=== PATIENT | male | born 1985 | race Caucasian/White ===

== ENCOUNTER 2021-01-24 07:25 | Day surgery (SDC) | payer BC ==
[~2021-01-24] VITALS: Ht 172.7 cm; Wt 98.0 kg
[~2021-01-24 07:25] MED LIST: BUPRENORPHINE HC8 MG SL; HYDROCHLOROTHIA25 MG PO
--- NOTE | 2021-01-24 09:47 | NUR ---
01/24/21 0947 Evy Duran 0928: PT ARRIVES TO PACU FOR RECOVERY. 82 SAT 85% ON ARRIVAL AND PT NON RESPONSIVE TO VERBAL OR PAINFUL STIMULI. JAW THRUST PERFORMED AND PT PLACED ON 12L O2 VIA FACEMASK. 02 SATS INCREASED TO 98%. 0933: CLAM DREDGER AT THE BEDSIDE. OPA PLACEMENT ATTEMPTED. PT CLAMPS DOWN AND UNABLE TO ADVANCE. HOB ELEVATED AND PT MAINTAINS AIRWAY WITHOUT ASSISTANCE AT THIS TIME. REMAINS UN RESPONSIVE TO VERBAL AND PAINFUL STIMULI. VSS, O2 SATS >99% ON 12L O2 VIA MASK 0934: O2 TURNED DOWN TO 10L VIA FACEMASK. O2 SATS MAINTAINED >97%. AIRWAY OCCLUDES INTERMITTENTLY. REACTIVE TO AND RESOLVED WITH TACTILE STIMULATION 0944: PT COUGHS EFFECTIVELY. REMAINS REACTIVE TO TACTILE STIMULATION ONLY. O2 SAT CONTS TO REMAINS STABLE ON 10L O2 VIA FACEMASK 0946: PT OPENS EYES ON COMMAND, REMAINS DROWSY. VSS, RESP EVEN AND UNLABORED. OXYGEN TURNED DOWN TO 8L. SATS STABLE >98%. DRESSING C/D/I.
[2021-01-24] MEDS ORDERED: OXYCODON-ACETA1 EAC2 PO (09:55)
[2021-01-24] MEDS ORDERED: ACETAMINOPHEN500 MG PO (09:55)
[2021-01-24] MEDS ORDERED: IBUPROFEN600 MG PO (09:55)
--- NOTE | 2021-01-24 11:25 | NUR ---
PATIENT TOLERATING PO FLUIDS AND CRACKERS WITH NO NAUSEA AT THIS TIME. PATIENT STATES PAIN TO LEFT GROIN WNL. AT BEDSIDE. CALL LIGHT WITHIN REACH. DRESSING TO LEFT GROIN AREA INTACT WITH SCANT SEROSANGUINOUS DRAINAGE NOTED.
--- NOTE | 2021-01-24 12:43 | NUR ---
1238: PT USES CALL LIGHT TO NOTIFY DS STAFF. PT STATES HE WAS ABLE TO VOID AND POINTS TO URINAL WITH APPROXIMATELY 200 MLS DARK YELLOW URINE. PT TOLERATES LUNCH WITH NO COMPLAINTS OF NAUSEA. PT ASKS THIS RN IF "IT'S NORMAL FOR DRESSING TO HAVE BLOOD ON IT" THIS RN ASSESS AND NOTES SMALL AMOUNT OF RED DRAINAGE TO LATERAL ASPECT AND REASSURED THAT IT IS OKAY. PT STATES PAIN 4/10 AND TOLERABLE AND STATES "I FEEL FINE TO GO HOME." CURTAIN DRAWN FOR PT TO GET DRESSED, SIG OTHER AT BEDSIDE, ENCOURAGED TO OPEN CURTAIN WHEN FINISHED.
--- NOTE | 2021-01-24 12:45 | NUR ---
PATIENT ABLE TO VOID CLEAR YELLOW URINE PER URINAL. STATES PAIN WNL TO LEFT GROIN AREA. PATIENT DENIES ANY NAUSEA AT THIS TIME. PATIENT ABLE TO AMBULATE WITH OUT DISCOMFORT. PATINET DENIES ANY DIZZINESS WHEN AMBULATING.
--- NOTE | 2021-01-27 17:05 | PATH ---
[facility] [address], [place] [address] Signed SPECIMEN(S): A LEFT INGUINAL LYMPH NODE SPECIMEN(S): B B T CELL FLOW ONLY SPECIMEN SOURCE: A. LEFT INGUINAL LYMPH NODE B. B T CELL FLOW ONLY CLINICAL HISTORY: 35 y/o man with left Inguinal lymphadenopathy of at least [address] scan 01/09/21 confirmed small left groin lymph nodes but no deep vein thromboses, intra-abdominal findings of concern. Patient reports night sweats but no other constitutional signs suggestive of lymphoma or other problems. Left groin lymph node biopsy. FINAL PATHOLOGIC DIAGNOSIS: A. Lymph node, left inguinal, excisional biopsy: - Benign lymph node with reactive features. - No malignancy is identified. - No diagnostic abnormal populations are identified by flow cytometry. COMMENT: As part of [facility]' Quality Improvement Program, this case was reviewed by another member of our pathology staff with subspecialty training in hematopathology. No malignancy is identified. The etiology for this lymph node hyperplasia is unclear but possibilities would include post vaccination, viral infections, autoimmune conditions, and drug interactions. Re-biopsy may be indicated if the adenopathy persists, enlarges, or remains unexplained. The observations on this lymph node are those of Dr. Jose Cai, hematopathologist. The majority of the gated lymphocytes are T-cells with a mild, non-diagnostic, increase in the CD4:CD8 ratio of 4.9:1 (normal 1.0-4.0). There is no aberrant marking in the beard-T markers and a reactive process is favored for the mildly increased CD4:CD8 ratio. Correlation with histologic findings is required. The B-cells are unremarkable with no light chain restriction. FLOW CYTOMETRY ANALYSIS: FLOW DIFFERENTIAL (% Total CD45 vs. SSC gating): Myeloid 1%; Lymphoid 97%; Debris 1%. Cell Count: 6.6 x 10*3/uL. Total Viability: 99% POPULATION ANALYSIS: PATIENT NAME: LEO DELA CRUZ PATHOLOGY DATE OF : 89 REPORT #: [id number] PHYSICIAN: JOE RIZZO PCP: Lynn Leyva REPORT IS CONFIDENTIAL AND NOT TO BE RELEASED WITHOUT AUTHORIZATION [facility] [address], [place] [address] Signed LYMPHOID CELLS: The lymphocyte gate comprises 97% of total events and includes 78% T-cells with a CD4:CD8 ratio of 4.9:1 and normal beard T-cell antigen expression. 18% of lymphocytes are polyclonal B-cells with a kappa:lambda ratio of 1.4:1. The remainders are NK-cells. PLASMA CELLS: A significant plasma cell population is not detected in the neg-dimCD45/CD38 screening gate. ANTIBODIES USED: KAPPA, LAMBDA, CD20, CD10, CD19, CD23, CD38, FMC7, CD16, CD56, CD8, CD5, CD2, CD4, CD7, CD3, CD45, 7AAD: TOTAL ANTIBODIES USED: 18. DKW FLOW CYTOMETRY: Left inguinal lymph node, flow cytometry: - No diagnostic abnormal populations are identified by flow cytometry. - See comment. MICROSCOPIC EXAMINATION: Histologic sections of all submitted blocks are examined by light microscopy. These findings, together with the gross examination, support the pathologic diagnosis. PAX5 and CD20 (B-cells): Positive in subcortical primary and secondary follicles. CD3, CD5, and CD43 (T-cells): Positive in interfollicular areas. CD10 and BCL6 (follicular markers): Positive in secondary follicles, negative in primary follicles and interfollicular lymphocytes. BCL2 (T-cells and some B-cells): Negative in secondary follicles. Positive in primary follicles, mantle zone areas, and T-cell areas. CD21 and CD23 (dendritic markers): Positive in sub-capsular follicles. Cyclin D (mantle cell marker): Negative. CD138 (plasma cells): 5%, located in sinuses. Ki-67 (proliferation index): 3% in interfollicular areas, 85% in secondary germinal centers. HHV8: Negative. HARRIS stains: HARRIS Frederickson and Lambda (light chains): Polyclonal in plasma cells, negative in lymphocytes. A Pancytokeratin (AE1/AE3) immunohistochemical stain was reviewed by Dr. Huynh and is negative for metastatic carcinoma. GROSS DESCRIPTION: The specimen, labeled "AE, left inguinal lymph node," is received fresh and PATIENT NAME: LEO DELA CRUZ PATHOLOGY DATE OF : 89 REPORT #: [id number] PHYSICIAN: JOE PATHOLOGY PCP: Lynn Leyva REPORT IS CONFIDENTIAL AND NOT TO BE RELEASED WITHOUT AUTHORIZATION [facility] [address], [place] [address] Signed consists of 2.0 x 1.5 x 0.7 cm fat with an embedded 2.0 x 1.0 x 0.6 cm lymph node. Lymph node is bisected to reveal a fleshy, pink cut surface. Touch preps were made and a small portion of lymph node tissue submitted and held in RPMI for flow cytometry per Dr. Huynh. The remaining of the lymph nodes is entirely submitted in single cassette (A1). JS (under the direct supervision of a pathologist) The Gross Description was prepared using a voice recognition system. The report was reviewed for accuracy; however, sound-alike word errors, addition and/or deletions may occur. If there is any question about this report, please contact Client Services. ADDITIONAL NOTES: This test was developed and its performance characteristics determined by [facility]. It has not been cleared or approved by the US Food and Drug Administration. The FDA does not require this test to go through premarket FDA review. This test is used for clinical purposes. It should not be regarded as investigational or for research. This laboratory is certified under the Clinical Laboratory Improvement Amendments (CLIA) as qualified to perform high complexity clinical laboratory testing. PERFORMING LABORATORY: The technical component of flow cytometry was performed by [facility], [address] [place] [address] (Notcher: Ankur Jackson D.O.; CLIA#: [id number]). Professional interpretation was performed at [facility], [address] [place] [address] IMAGES: A: [id number] A: [id number] FINAL DIAGNOSIS PERFORMED BY: Jose Cai MD, Jan 25 2021 3:10PM The technical component was performed by [facility], [address] [place] [address] (Notcher: Linda Zavala MD; CLIA# [id number]). Diagnostician: Joanne Huynh MD Pathologist Electronically Signed 01/27/2021 Copies: PATIENT NAME: LEO DELA CRUZ PATHOLOGY DATE OF : 89 REPORT #: [id number] PHYSICIAN: JOE PATHOLOGY PCP: Lynn Leyva REPORT IS CONFIDENTIAL AND NOT TO BE RELEASED WITHOUT AUTHORIZATION [address] [place], [place] [address] Signed ~ PATIENT NAME: LEO DELA CRUZ PATHOLOGY DATE OF : [birth year] REPORT #: [id number] PHYSICIAN: JOE PATHOLOGY PCP: Lynn Leyva REPORT IS CONFIDENTIAL AND NOT TO BE RELEASED WITHOUT AUTHORIZATION
--- NOTE | 2021-01-28 10:51 | OR ---
[facility] [facility] [address], [place] [address] Signed DATE OF OPERATION: 01/24/2021 SURGEON: Erika Alejandra MD PREOPERATIVE DIAGNOSIS: Left inguinal adenopathy. POSTOPERATIVE DIAGNOSIS: Left inguinal adenopathy. PROCEDURE: Left inguinal excisional lymph node biopsy. ANESTHESIA: General LMA; Mark Gupta CRNA and local 10 mL of 0.25% Marcaine. INDICATION: This 35-year-old white man is in generally good health and was seen by his provider JOSE MANUEL Bridges noting left inguinal lymph node enlargement and mild tenderness. A CT scan was performed on January 09, 2021 showing small lymph nodes of the left groin, but no other specific abnormalities and no deep venous thrombosis or other intraabdominal findings. A CT scan on December 05, 2020 showed prominent lymph nodes measuring at least 1.6 cm. He has been referred for lymph node biopsy with concerns regarding the adenopathy, though it is not profound and not particularly symptomatic. He does admit to "night sweats," but has no other constitutional symptoms to suggest lymphoma or other finding. Lymph node biopsy is strongly urged by his primary provider and we have discussed the risks of the procedure including, but not limited to, bleeding, infection, lymphocele formation, and so forth. Understanding this, he wished to proceed. FINDINGS: A normal-appearing lymph node was noted, it was about 2.5 cm in size. Multiple clips were used to secure the lymphatic branches so as to avoid postoperative lymphocele. There were no other findings of note. DESCRIPTION OF PROCEDURE: The patient was brought to the operating room, given a general LMA type anesthetic. Preoperative antibiotic Ancef was given. Sequential compression device stockings were used and heparin subcutaneously administered. The lower groin area on the left was prepared with clipping and ultimately a chlorhexidine solution. Palpation along the inguinal ligament demonstrated the lymph nodes in question. An incision was made along Electronically Signed By: ERIKA ALEJANDRA MD 01/28/21 1051 PATIENT NAME: LEO DELA CRUZ OPERATIVE REPORT DATE OF : [birth year] REPORT #: [id number] PHYSICIAN: ERIKA ALEJANDRA MD PCP: Lynn Leyva REPORT IS CONFIDENTIAL AND NOT TO BE RELEASED WITHOUT AUTHORIZATION [facility] [address], [place] [address] Signed the groin crease. Dissection carried through the dermis with blunt and electrocautery dissection. Promptly noted was a normal-appearing lymph node. This was from surrounding tissue with blunt and electrocautery dissection. Lymphatic channels which emanated to and from the lymph node were identified and secured with small clips. Lymph node was completely excised and passed for pathology lymphoma would be present. Irrigation was undertaken. The wound was closed in layers with interrupted 2-0 Vicryl and running subcuticular 3-0 Vicryl for the skin. Steri-Strips were applied as was an Acticoat dressing. BLOOD LOSS: Minimal. COMPLICATIONS: None. COUNTS: Sponge, needle and instrument counts reported as correct x3. MD ZOHRA Hawk/JOHNL /[id number] cc: JOSE MANUEL Bloom Copies: Lynn Leyva ~ Electronically Signed By: ERIKA ALEJANDRA MD 01/28/21 1051 PATIENT NAME: LEO DELA CRUZ OPERATIVE REPORT DATE OF : 89 REPORT #: [id number] PHYSICIAN: ERIKA ALEJANDRA MD PCP: Lynn Leyva REPORT IS CONFIDENTIAL AND NOT TO BE RELEASED WITHOUT AUTHORIZATION
== END 2021-01-24 12:55 | disposition home or self-care (01) ==
LOC: DS 07:25
PROVIDERS: ATTEND Surgery
PROC: 07TJ0ZZ Resection of Left Inguinal Lymphatic, Open Approach (ICD-10-PCS; principal; 2021-01-24 08:30)
DX: R59.0 Localized enlarged lymph nodes (principal); G47.33 Obstructive sleep apnea (adult) (pediatric); N40.0 Benign prostatic hyperplasia without lower urinary tract symptoms; F17.290 Nicotine dependence, other tobacco product, uncomplicated
CPT/HCPCS: J0690; J1644; J1885; J2001; J2405; J2704; J3010; J7121